=== PATIENT | female | born 1945 | race Caucasian/White ===

== ENCOUNTER 2017-11-04 11:23 | Observation (INO) | payer MEDICARE, OTHER ==
[2017-11-04] MEDS ORDERED: Temazepam 15 MG Cap PO PRN (11:41)
[2017-11-04] MEDS ORDERED: Acetaminophen 325 MG Tab PO PRN (11:41)
[2017-11-04] MEDS ORDERED: Magnesium Hydroxide 400 MG/5 ML Susp 30 ML Cup PO PRN (11:41)
[2017-11-04] MEDS ORDERED: Ondansetron 4 MG/2 ML SDV IV PRN (11:41)
[2017-11-04] MEDS ORDERED: Calcium Carbonate 500 MG Tab.Chew PO PRN (11:47)
[2017-11-04 12:25] LABS: CHLORIDE,CL 107 mEq/L (98-106); SODIUM,NA 143 mEq/L (136-145)
[2017-11-04] MEDS ORDERED: Iopamidol 755 Mg/ML 100 ML Bottle IVPUSH ONE (12:42)
[2017-11-04] MEDS ORDERED: Enoxaparin 30 MG/0.3 ML Syringe SUBCUT SCH (13:00)
[2017-11-04] MEDS: Lactated Ringers 1,000 ML IV SCH (13:47)
[2017-11-04] MEDS ORDERED: Aspirin 81 MG Tab.EC PO SCH (20:00)
[2017-11-05] MEDS: Lactated Ringers 1,000 ML IV SCH (02:23)
[2017-11-05] MEDS ORDERED: Cholecalciferol (Vitamin D3) 1,000 Unit Tab PO SCH (08:00)
[2017-11-05] MEDS ORDERED: amLODIPine 2.5 MG Tab PO SCH (08:00)
--- NOTE | 2017-11-05 08:28 | PCM.DCSUM1 ---
Discharge Summary - Discharge Data Discharge Disposition: Home, Self-Care 01 Condition: Good - Discharge Diagnosis/Problem(s) (1) Panic attack as reaction to stress SNOMED Code(s): 81366387 ICD Code: F41.0 - PANIC DISORDER [EPISODIC PAROXYSMAL ANXIETY]; F43.0 - ACUTE STRESS REACTION Status: Acute Current Visit: Yes - Discharge Plan Prescriptions/Med Rec: Cefuroxime Axetil [Cefuroxime] 250 mg PO BID 10 Days #20 tablet Prednisone [IJD: predniSONE] 20 mg PO DAILY 5 Days #5 tab Home Medications: Home Meds Aspirin [Adult Low Dose Aspirin EC] 81 mg PO BEDTIME 11/04/17 [History] Calcium Carb/Mag Ox/Zinc Sulf [Gxpefmd-Cwaexppit-Mmwy Tablet] 1 tab PO BEDTIME 11/04/17 [History] Cholecalciferol (Vitamin D3) [Vitamin D3] 1,000 unit PO DAILY 11/04/17 [History] Glucosamine [Glucosamine Sulfate] 500 mg PO BID 11/04/17 [History] Multivitamin [Multivitamins] 1 tab PO DAILY 11/04/17 [History] Tyrone-3 Fatty Acids/Fish Oil [Fish Oil 1,200 mg Softgel] 1,200 mg PO BID [History] amLODIPine Besylate [Amlodipine Besylate] 5 mg PO DAILY 11/04/17 [History] Cefuroxime Axetil [Cefuroxime] 250 mg PO BID 10 Days #20 tablet 11/05/17 [Rx] Prednisone [IJD: predniSONE] 20 mg PO DAILY 5 Days #5 tab 11/05/17 [Rx] Patient Handouts: Panic Attacks, [id number], Hyperventilation Referrals: Mayur Romero MD [Primary Care Provider] - - Patient Data Vitals - Most Recent: Last Vital Signs Temp 96.8 F 11/05/17 08:00 Pulse 59 L 11/05/17 08:00 Resp 16 11/05/17 08:00 BP 115/74 11/05/17 08:00 Pulse Ox 100 11/05/17 08:00 Weight - Most Recent: 126 lb 8.725 oz I&O - Last 24 hours: Intake & Output 11/04/17 11/05/17 11/05/17 22:59 06:59 14:59 Intake Total 1000 Balance 1000 Lab Results - Last 24 hrs: Laboratory Results - last 24 hr 11/04/17 11/04/17 11/04/17 Range/Units 11:41 11:50 11:50 WBC 5.6 (5.0-10.0) 10^3/uL RBC 4.30 (4.00-5.50) 10^6/uL Hgb 13.4 (12.0-16.0) g/dL Hct 41.0 (37.0-47.0) % MCV 95.3 H (82.0-94.0) fL MCH 31.2 (27.0-32.0) pg MCHC 32.7 L (33.0-38.0) g/dL RDW Coeff of Yessi 12.8 (11.0-15.0) % Plt Count 257 (150-400) 10^3/uL Neut % (Auto) 74.1 (35-85) % Lymph % (Auto) 14.2 (10-55) % [place] % (Auto) 8.9 (0-16) % Eos % (Auto) 2.1 (0-5) % Baso % (Auto) 0.7 (0-3) % Neut # (Auto) 4.17 (1.80-7.00) 10^3/uL Lymph # (Auto) 0.80 L (1.00-4.80) 10^3/uL [place] # (Auto) 0.50 (0.00-0.80) 10^3/uL Eos # (Auto) 0.12 (0.00-0.45) 10^3/uL Baso # (Auto) 0.04 10^3/uL ESR 7 (0-20) mm/hr PT 11.2 (9.7-12.3) SEC INR 1.04 (0.92-1.18) D-Dimer, Quantitative 0.46 (0.00-0.50) Sodium 143 (136-145) mEq/L Potassium 3.4 L (3.5-5.0) mEq/L Chloride 107 H (98-106) mEq/L Carbon Dioxide 29 (21-32) mmol/L BUN 13 (7-18) mg/dL Creatinine 0.8 (0.6-1.0) mg/dL Est Cr Clr Drug Dosing TNP Estimated GFR (MDRD) > 60 (>=60) mL/min Glucose 90 (75-99) mg/dL Calcium 9.5 (8.4-10.1) mg/dL Magnesium 2.3 (1.8-2.4) mg/dL Total Bilirubin 0.4 (0.0-1.0) mg/dL AST 16 (15-37) U/L ALT 23 (12-78) U/L Alkaline Phosphatase 59 (46-116) U/L Troponin I < 0.017 (0.00-0.06) ng/mL C-Reactive Protein < 0.2 L (0.2-0.8) mg/dL NT-Pro-B Natriuret Pep 93 (0-1000) pg/mL Total Protein 7.1 (6.4-8.2) g/dL Albumin 3.6 (3.4-5.0) g/dL TSH, Ultra Sensitive 1.00 (0.36-5.60) uIU/mL Urine Color (YELLOW) Urine Appearance (CLEAR) Urine pH (4.5-8.0) Ur Specific Lyndon (1.003-1.020) Urine Protein (NEGATIVE) mg/dL Urine Glucose (UA) (NEGATIVE) mg/dL Urine Ketones (NEGATIVE) mg/dL Urine Occult Blood (NEGATIVE) Urine Nitrite (NEGATIVE) Urine Bilirubin (NEGATIVE) Urine Urobilinogen (0.2-1.0) EU/dL Ur Leukocyte Esterase (NEGATIVE) Urine RBC (0-5) /HPF Urine WBC (0-5) /HPF Amorphous Sediment (NOT SEEN) /HPF 11/04/17 11/05/17 Range/Units 12:30 06:50 WBC (5.0-10.0) 10^3/uL RBC (4.00-5.50) 10^6/uL Hgb (12.0-16.0) g/dL Hct (37.0-47.0) % MCV (82.0-94.0) fL MCH (27.0-32.0) pg MCHC (33.0-38.0) g/dL RDW Coeff of Yessi (11.0-15.0) % Plt Count (150-400) 10^3/uL Neut % (Auto) (35-85) % Lymph % (Auto) (10-55) % [place] % (Auto) (0-16) % Eos % (Auto) (0-5) % Baso % (Auto) (0-3) % Neut # (Auto) (1.80-7.00) 10^3/uL Lymph # (Auto) (1.00-4.80) 10^3/uL [place] # (Auto) (0.00-0.80) 10^3/uL Eos # (Auto) (0.00-0.45) 10^3/uL Baso # (Auto) 10^3/uL ESR (0-20) mm/hr PT (9.7-12.3) SEC INR (0.92-1.18) D-Dimer, Quantitative (0.00-0.50) Sodium (136-145) mEq/L Potassium (3.5-5.0) mEq/L Chloride (98-106) mEq/L Carbon Dioxide (21-32) mmol/L BUN (7-18) mg/dL Creatinine (0.6-1.0) mg/dL Est Cr Clr Drug Dosing Estimated GFR (MDRD) (>=60) mL/min Glucose (75-99) mg/dL Calcium (8.4-10.1) mg/dL Magnesium (1.8-2.4) mg/dL Total Bilirubin (0.0-1.0) mg/dL AST (15-37) U/L ALT (12-78) U/L Alkaline Phosphatase (46-116) U/L Troponin I < 0.017 (0.00-0.06) ng/mL C-Reactive Protein (0.2-0.8) mg/dL NT-Pro-B Natriuret Pep (0-1000) pg/mL Total Protein (6.4-8.2) g/dL Albumin (3.4-5.0) g/dL TSH, Ultra Sensitive (0.36-5.60) uIU/mL Urine Color Light yellow (YELLOW) Urine Appearance Clear (CLEAR) Urine pH 8.5 H (4.5-8.0) Ur Specific Lyndon 1.015 (1.003-1.020) Urine Protein Negative (NEGATIVE) mg/dL Urine Glucose (UA) Negative (NEGATIVE) mg/dL Urine Ketones Negative (NEGATIVE) mg/dL Urine Occult Blood Negative (NEGATIVE) Urine Nitrite Negative (NEGATIVE) Urine Bilirubin Negative (NEGATIVE) Urine Urobilinogen 0.2 (0.2-1.0) EU/dL Ur Leukocyte Esterase Negative (NEGATIVE) Urine RBC Not seen (0-5) /HPF Urine WBC Not seen (0-5) /HPF Amorphous Sediment Moderate H (NOT SEEN) /HPF Med Orders - Current: Current Medications Acetaminophen (Tylenol) 650 mg PO Q4H PRN PRN Reason: Pain (Mild 1-3)/fever Amlodipine Besylate (Norvasc) 5 mg PO DAILY [facility] Aspirin (Halfprin) 81 mg PO BEDTIME [facility] Last Admin: 11/04/17 19:49 Dose: 81 mg Calcium Carbonate/Glycine (Tums) 500 mg PO QID PRN PRN Reason: Dyspepsia Cholecalciferol (Vitamin D3) 1,000 units PO DAILY [facility] Enoxaparin Sodium (Lovenox) 30 mg SUBCUT DAILY@1200 [facility] Last Admin: 11/04/17 13:46 Dose: 30 mg Lactated Ringer's (Ringers, Lactated) 1,000 mls @ 80 mls/hr IV ASDIRECTED [facility] Last Admin: 11/05/17 02:23 Dose: 80 mls/hr Magnesium Hydroxide (Milk Of Magnesia) 30 ml PO Q12H PRN PRN Reason: Constipation Ondansetron HCl (Zofran) 4 mg IV Q6H PRN PRN Reason: Nausea/Vomiting Temazepam (Restoril) 15 mg PO BEDTIME PRN PRN Reason: Sleep Discontinued Medications Iopamidol (Isovue-370 (76%)) 100 ml IVPUSH ONETIME ONE Stop: 11/04/17 12:43 Last Admin: 11/04/17 13:40 Dose: 100 ml *Q Meaningful Use (DIS) - VTE *Q VTE Criteria *Q: - Stroke *Q Stroke Criteria *Q: - AMI *Q AMI Criteria *Q:
--- NOTE | 2017-11-06 07:27 | DISCH ---
REASON FOR HOSPITALIZATION: This 72-year-old white female presents to [facility] yesterday tachycardic, short of breath, dizzy. She has been admitted to the hospital, possibly had a TIA. We placed her on telemetry that was normal. A CTA of head was normal. CTA of neck pending. Echo pending. LABORATORY DATA: Labs here in the hospital basically within normal limits and mildly hypokalemic. At the time of discharge, neck was supple. Chest was clear. Cardiac sounds were good. DISCHARGE MEDICATIONS: Home medications plus on CTA she questioned whether there was a sphenoid sinusitis, so she will be going home on steroids and antibiotics. DISCHARGE DIAGNOSIS: 1. POSSIBLE HYPERVENTILATION SYNDROME. 2. SINUSITIS. 3. HYPERTENSION. LILI/KAM /[id number]
== END 2017-11-05 10:45 | disposition home or self-care (01) ==
LOC: CC.MS 11:23 → UNDOADMOB 11:23 → CC.MS 11:41
PROVIDERS: ADMIT General Practice; ATTEND General Practice
DX: F41.0 Panic disorder [episodic paroxysmal anxiety] (principal); F43.0 Acute stress reaction; J32.9 Chronic sinusitis, unspecified; I10 Essential (primary) hypertension; E78.5 Hyperlipidemia, unspecified; Z79.82 Long term (current) use of aspirin; Z79.899 Other long term (current) drug therapy; Z79.2 Long term (current) use of antibiotics
CPT/HCPCS: 36415; 70496; 70498; 71046; 80053; 81001; 83735; 83880; 84443; 84484; 85025; 85379; 85610; 85651; 86140; 93005; 93306; 96360; 96361; 96372; A9270; G0378; J1650; J7120; Q9967; 93010; 99217; 99220

== ENCOUNTER 2025-07-31 08:38 | Emergency (ER) | payer MEDICARE, OTHER ==
[2025-07-31 09:46] LABS: BASOPHILS ABSOLUTE AUTO 0.05 10^3/uL (0.00-0.50); BASOPHILS PERCENT AUTO 1.2 % (0-1); EOSINOPHILS ABSOLUTE AUTO 0.09 10^3/uL (0.00-1.50); EOSINOPHILS PERCENT AUTO 2.1 % (0-6); IMMATURE GRAN ABSOLUTE AUTO 0.00 10^3/uL (0.00-0.49); IMMATURE GRAN PERCENT AUTO 0.0 % (0.0-4.9); LYMPHOCYTES ABSOLUTE AUTO 0.85 10^3/uL (0.60-5.00); LYMPHOCYTES PERCENT AUTO 20.1 % (24-44); MONOCYTES ABSOLUTE AUTO 0.44 10^3/uL (0.00-1.50); MONOCYTES PERCENT AUTO 10.4 % (0-10); NEUTROPHILS ABSOLUTE AUTO 2.79 x10^3/uL (1.80-8.00); NEUTROPHILS PERCENT AUTO 66.2 % (41-71); PLATELET COUNT,PLT 205 10^3/uL (150-400); RED BLOOD CELL COUNT 4.29 x10^6/uL (4.00-5.50); WHITE BLOOD CELL COUNT,WBC 4.2 10^3/uL (4.0-11.0)
[2025-07-31 09:54] LABS: ALANINE AMINOTRANSFERASE,ALT 28 U/L (12-78); ASPARTATE AMNIOTRANSFERASE,AST 19 U/L (15-37); BILIRUBIN TOTAL 0.6 mg/dL (0.0-1.0); BLOOD UREA NITROGEN,BUN 12 mg/dL (7-18); CARBON DIOXIDE,CO2 26 mmol/L (21-32); CHLORIDE,CL 105 mEq/L (98-106); CREATININE 0.8 mg/dL (0.6-1.0); EST CRCL DRUG DOSING (CG) 41.13 mL/min; GLUCOSE RANDOM 95 mg/dL (75-99); POTASSIUM,K 3.6 mEq/L (3.5-5.0); PROTEIN TOTAL,TP 6.9 g/dL (6.4-8.2); SODIUM,NA 143 mEq/L (136-145)
[2025-07-31 09:55] LABS: ESTIMATED GFR 75 mL/min (>=60)
[2025-07-31 09:57] LABS: APPEARANCE,URINE CLEAR (CLEAR); GLUCOSE,URINE NEGATIVE (NEGATIVE); OCCULT BLOOD,URINE NEGATIVE (NEGATIVE)
[2025-07-31 10:03] LABS: EPITHELIAL CELLS,URINE OCCASIONAL /HPF (NOT SEEN)
[2025-07-31] MEDS: Iopamidol 755 Mg/ML 100 ML Bottle IVPUSH ONE (10:48)
== END 2025-07-31 12:05 | disposition home or self-care (01) ==
LOC: CC.ED 08:38
DX: N28.89 Other specified disorders of kidney and ureter (principal); I10 Essential (primary) hypertension; M19.90 Unspecified osteoarthritis, unspecified site; Z79.899 Other long term (current) drug therapy; Z90.710 Acquired absence of both cervix and uterus
CPT/HCPCS: 36415; 74177; 80053; 81001; 83605; 83690; 83735; 85025; 86140; 99284; Q9967